=== PATIENT | female | born 1980 | race Hispanic/Latino ===

== ENCOUNTER 2017-08-25 01:00 | Inpatient (IN) | payer MEDICAID, OTHER ==
[~2017-08-25] VITALS: Ht 149.9 cm; Wt 122.5 kg
[2017-08-25] MEDS ORDERED: LIDOCAINE HCL 2% VISCOUS 15 ML UDCUP ONE (01:29)
[2017-08-25] MEDS ORDERED: MAG HYDROX/AL HYDROX/SIMETH ES 30 ML SUSP UDCUP ONE (01:30)
[2017-08-25] MEDS ORDERED: ACETAMINOPHEN-CODEINE ELIXIR 5 ML UDCUP ONE (01:30)
[2017-08-25 01:51] LABS: BASOPHILS % (AUTO) 0.5 % (0.0-5.0); EOSINOPHILS % (AUTO) 2.1 % (0.0-8.0); HEMATOCRIT 33.7 % (36-48); LYMPHOCYTES % (AUTO) 24.1 % (21.0-51.0); MEAN CORPUSCULAR HEMOGLOBIN 25.4 pg (27.0-33.0); MEAN CORPUSCULAR HGB CONC 33.3 g/dL (32.0-36.0); MEAN CORPUSCULAR VOLUME 76.1 fL (79-99); MONOCYTES % (AUTO) 5.1 % (3.0-13.0); NEUTROPHILS % (AUTO) 68.2 % (40.0-77.0); PLATELET COUNT (AUTO) 383 K/uL (130-400); RED BLOOD CELL COUNT(AUTO) 4.42 MIL/uL (4.00-5.50); RED CELL DISTRIBUTION WIDTH 16.9 % (11.0-15.5); WHITE BLOOD COUNT (AUTO) 10.9 K/uL (4.8-10.8)
[2017-08-25 02:00] LABS: CREATININE 0.7 mg/dL (0.5-1.5)
[2017-08-25 02:05] LABS: ALBUMIN 3.1 g/dL (3.5-5.0); BILIRUBIN,TOTAL 0.2 mg/dL (0.2-1.0); TOTAL PROTEIN, SERUM 7.5 g/dL (6.0-8.3)
[2017-08-25] MEDS ORDERED: SODIUM CHLORIDE 0.9% 1000ML 1,000 ML IV ONE (02:45)
[2017-08-25 02:46] LABS: APPEARANCE,URINE Clear (CLEAR); BILIRUBIN,URINE Negative (NEGATIVE); COLOR,URINE Yellow (YELLOW); GLUCOSE, URINE (UA) Negative (NEGATIVE); KETONES,URINE Negative (NEGATIVE); LEUKOCYTE ESTERASE ,URINE Negative (NEGATIVE); NITRATE,URINE Negative (NEGATIVE); OCCULT BLOOD,URINE Negative (NEGATIVE); PH,URINE 5.5 (5.0-8.0); PROTEIN,URINE Negative (NEGATIVE); UROBILINOGEN,URINE 0.2 mg/dL (0.2-1.0)
[2017-08-25] MEDS ORDERED: MORPHINE SULFATE 4 MG/1ML SYG ONE (02:46)
[2017-08-25] MEDS ORDERED: HYDROCODONE/ACETAMINOPHEN 10/325 MG TAB ONE (04:10)
[2017-08-25 08:00] VITALS: BP 113/65
[2017-08-25] MEDS: DEXTROSE 5 %-0.45 % NACL 1,000 ML IV SCH ×2 (08:37→15:24)
[2017-08-25] MEDS ORDERED: IBUP-2353 PO (08:55)
[2017-08-25] MEDS ORDERED: MEPERIDINE-PF 75 MG/ML SYG IM PRN (11:23)
[2017-08-25] MEDS ORDERED: PROMETHAZINE HCL 25 MG/ML 1ML AMPULE IM PRN (11:23)
[2017-08-25 11:31] VITALS: BP 112/61
[2017-08-25 15:27] VITALS: BP 110/68
[2017-08-25] MEDS ORDERED: PEG 3350/NA SULF,BICARB,CL/KCL 4000 ML SOLN PO ONE (17:45)
[2017-08-25 19:36] VITALS: BP 118/71
[2017-08-25 23:35] VITALS: BP 127/70
[2017-08-26] VITALS (25 sets, daily range): BP systolic 107–152; BP diastolic 59–92
[2017-08-26] MEDS: DEXTROSE 5 %-0.45 % NACL 1,000 ML IV SCH ×3 (00:02→18:36)
[2017-08-26 05:34] LABS: BASOPHILS % (AUTO) 0.5 % (0.0-5.0); EOSINOPHILS % (AUTO) 2.2 % (0.0-8.0); HEMATOCRIT 28.8 % (36-48); MEAN CORPUSCULAR HEMOGLOBIN 26.4 pg (27.0-33.0); MEAN CORPUSCULAR HGB CONC 34.9 g/dL (32.0-36.0); MEAN CORPUSCULAR VOLUME 75.8 fL (79-99); MONOCYTES % (AUTO) 5.9 % (3.0-13.0); NEUTROPHILS % (AUTO) 64.4 % (40.0-77.0); PLATELET COUNT (AUTO) 332 K/uL (130-400); RED CELL DISTRIBUTION WIDTH 16.6 % (11.0-15.5); WHITE BLOOD COUNT (AUTO) 7.5 K/uL (4.8-10.8)
[2017-08-26] MEDS ORDERED: LACTATED RINGERS 1000ML 1,000 ML IV ONE (12:15)
[2017-08-26] MEDS ORDERED: CEFAZOLIN SODIUM 1 GM VIAL ONE (12:32)
[2017-08-26] MEDS ORDERED: LIDOCAINE PF 2% 5ML ABBOJECT ONE (12:41)
[2017-08-26] MEDS ORDERED: MIDAZOLAM HCL 1 MG/ML 2ML VIAL ONE (12:42)
[2017-08-26] MEDS ORDERED: PROPOFOL 10 MG/ML 20ML VIAL IV ONE (12:42)
[2017-08-26] MEDS ORDERED: FENTANYL CITRATE PF 50 MCG/1 ML 5ML AMP IV ONE (12:42)
[2017-08-26] MEDS ORDERED: GLYCOPYRROLATE 0.2 MG/ML 5 ML VIAL ONE (13:31)
[2017-08-26] MEDS ORDERED: DEXAMETHASONE SOD PHOSPHATE 10MG/ML 1ML VIAL ONE (13:31)
[2017-08-26] MEDS ORDERED: ONDANSETRON HCL 4 MG/2 ML VIAL ONE (13:31)
[2017-08-26] MEDS ORDERED: NEOSTIGMINE METHYLSULFATE 1MG/ML IV ONE (13:31)
[2017-08-26] MEDS ORDERED: DEXTROSE 5 %-0.45 % NACL 1,000 ML IV PRN (15:56)
[2017-08-26] MEDS ORDERED: BISACODYL 10 MG SUPP.RECT RC PRN (16:00)
[2017-08-26] MEDS ORDERED: PROMETHAZINE HCL 25 MG/ML 1ML AMPULE IM PRN (16:00)
[2017-08-26] MEDS: PROMETHAZINE HCL 25 MG/ML 1ML AMPULE IM PRN (16:30)
[2017-08-26] MEDS: MEPERIDINE-PF 75 MG/ML SYG IM PRN (16:30)
[2017-08-26] MEDS: ACETAMINOPHEN-CODEINE 300/30MG TAB PO PRN (18:35)
[2017-08-26 18:45] LABS: HEMATOCRIT 32.2 % (36-48)
[2017-08-27] VITALS (7 sets, daily range): BP systolic 96–123; BP diastolic 55–67
[2017-08-27] MEDS: MEPERIDINE-PF 75 MG/ML SYG IM PRN (00:18)
[2017-08-27] MEDS: PROMETHAZINE HCL 25 MG/ML 1ML AMPULE IM PRN (00:18)
[2017-08-27] MEDS: DEXTROSE 5 %-0.45 % NACL 1,000 ML IV SCH ×2 (02:06→22:00)
[2017-08-27 06:53] LABS: HEMATOCRIT 30.4 % (36-48); MEAN CORPUSCULAR HEMOGLOBIN 25.4 pg (27.0-33.0); MEAN CORPUSCULAR HGB CONC 33.1 g/dL (32.0-36.0); MEAN CORPUSCULAR VOLUME 76.8 fL (79-99); PLATELET COUNT (AUTO) 349 K/uL (130-400); RED BLOOD CELL COUNT(AUTO) 3.95 MIL/uL (4.00-5.50); RED CELL DISTRIBUTION WIDTH 16.5 % (11.0-15.5); WHITE BLOOD COUNT (AUTO) 8.1 K/uL (4.8-10.8)
[2017-08-27] MEDS: SIMETHICONE 80 MG TAB.CHEW PO PRN ×4 (09:18→22:21)
[2017-08-27] MEDS: DOCUSATE SODIUM 100 MG CAP PO PRN ×2 (09:18→22:20)
[2017-08-27] MEDS: IBUPROFEN 600 MG TABLET PO PRN ×3 (09:19→22:21)
[2017-08-27] MEDS: ACETAMINOPHEN-CODEINE 300/30MG TAB PO PRN ×2 (10:58→18:02)
[2017-08-28 03:42] VITALS: BP 109/61
[2017-08-28] MEDS: IBUPROFEN 600 MG TABLET PO PRN ×2 (03:54→09:29)
[2017-08-28] MEDS: DEXTROSE 5 %-0.45 % NACL 1,000 ML IV SCH (06:00)
[2017-08-28 07:59] VITALS: BP 106/52
[2017-08-28] MEDS: DOCUSATE SODIUM 100 MG CAP PO PRN (09:26)
[2017-08-28] MEDS: SIMETHICONE 80 MG TAB.CHEW PO PRN (09:26)
[2017-08-28 11:25] VITALS: BP 137/72
== END 2017-08-28 11:35 | disposition home or self-care (01) | DRG 742 ==
LOC: EDH 01:00 → EDHIP 01:01 → UNDOADMIN 02:44 → WSH 08:00
PROVIDERS: ADMIT Obstetrics & Gynecology; ATTEND Obstetrics & Gynecology
PROC: 0UT50ZZ Resection of Right Fallopian Tube, Open Approach (ICD-10-PCS; principal; 2017-08-26 12:40)
PROC: 0UT00ZZ Resection of Right Ovary, Open Approach (ICD-10-PCS; 2017-08-26 12:40)
DX: N83.201 Unspecified ovarian cyst, right side (principal); Z68.43 Body mass index [BMI] 50.0-59.9, adult; I11.9 Hypertensive heart disease without heart failure; E66.01 Morbid (severe) obesity due to excess calories; R19.00 Intra-abdominal and pelvic swelling, mass and lump, unspecified site; E03.9 Hypothyroidism, unspecified; J44.9 Chronic obstructive pulmonary disease, unspecified
CPT/HCPCS: 36415; 76830; 76856; 80053; 81003; 85014; 85018; 85025; 85027; 86304; 88307; A4218; A4344; J0690; J1100; J2001; J2175; J2250; J2270; J2405; J2550; J2704; J2710; J3010; J3490; J7030; J7120

== ENCOUNTER 2021-11-30 00:50 | Emergency (ER) | payer MEDICAID ==
[~2021-11-30] VITALS: Ht 154.9 cm; Wt 107.0 kg
[2021-11-30 01:16] VITALS: BP 146/87
[2021-11-30 01:20] LABS: APPEARANCE,URINE CLEAR (CLEAR); BILIRUBIN,URINE NEGATIVE (NEGATIVE); COLOR,URINE YELLOW (YELLOW); GLUCOSE, URINE (UA) >=1000 mg/dL (NEGATIVE); KETONES,URINE NEGATIVE (NEGATIVE); LEUKOCYTE ESTERASE ,URINE NEGATIVE (NEGATIVE); NITRATE,URINE NEGATIVE (NEGATIVE); OCCULT BLOOD,URINE NEGATIVE (NEGATIVE); PROTEIN,URINE NEGATIVE (NEGATIVE); UROBILINOGEN,URINE 0.2 mg/dL (0.2-1.0)
[2021-11-30 01:23] LABS: HCG,QUALITATIVE URINE NEGATIVE (NEGATIVE)
[2021-11-30] MEDS ORDERED: KETOROLAC 15MG/ML VIAL (15MG/ML) IM ONE (01:30)
[2021-11-30 01:38] LABS: RBC,URINE 0-1 /HPF (0-1)
[2021-11-30 01:39] LABS: BACTERIA,URINE None Seen /HPF (None Seen); SQUAMOUS EPITHELIAL CELL,UR Few /HPF (0-2)
[2021-11-30 01:40] LABS: WBC,URINE 0-1 /HPF (0-1)
[2021-11-30] MEDS ORDERED: IBUP-2077 PO (01:45)
[2021-11-30] MEDS ORDERED: CYCL10TA16 PO (01:45)
[2021-11-30] MEDS ORDERED: OXYC-38 PO (01:45)
== END 2021-11-30 02:03 | disposition home or self-care (01) ==
LOC: EDH 00:50
DX: M54.50 Low back pain, unspecified (principal); Z79.1 Long term (current) use of non-steroidal anti-inflammatories (NSAID); Z90.49 Acquired absence of other specified parts of digestive tract; Z90.721 Acquired absence of ovaries, unilateral; Z90.79 Acquired absence of other genital organ(s)
CPT/HCPCS: 99283; 81001; 81025; 96372; J1885